=== PATIENT | male | born 1995 | race Caucasian/White ===

== ENCOUNTER 2017-11-05 21:02 | Emergency (ER) | payer OTHER ==
[~2017-11-05] VITALS: Ht 190.5 cm; Wt 93.4 kg
[2017-11-05 23:13] VITALS: BP 139/73
== END 2017-11-05 23:13 | disposition home or self-care (01) ==
LOC: ED 21:02
DX: S90.32XA Contusion of left foot, initial encounter (principal); S63.602A Unspecified sprain of left thumb, initial encounter; W22.11XA Striking against or struck by driver side automobile airbag, initial encounter; Y93.89 Activity, other specified; Y92.488 Other paved roadways as the place of occurrence of the external cause; Y99.8 Other external cause status

== ENCOUNTER 2019-10-04 18:46 | Emergency (ER) | payer MEDICAID ==
[~2019-10-04] VITALS: Ht 190.5 cm; Wt 99.3 kg
[2019-10-04 18:59] VITALS: BP 162/99; Ht 190.5 cm; Wt 99.3 kg
== END 2019-10-04 19:59 | disposition home or self-care (01) ==
LOC: ED 18:46
DX: L60.0 Ingrowing nail (principal)